=== PATIENT | male | born 1975 | race American Indian/Alaskan Native ===

== ENCOUNTER 2022-04-15 13:00 | Emergency (ER) | payer SELFPAY ==
[2022-04-15] MEDS ORDERED: NALOXONE 2 MG/2 ML INJ IV SCH (13:30)
[2022-04-15] MEDS ORDERED: NALOXONE 0.4 MG/1 ML INJ IV PRN ×2 (13:31→20:23)
[2022-04-15] MEDS ORDERED: SODIUM CHLORIDE 0.9% 1000 ML 1,000 ML IV ONE (13:31)
[2022-04-15] MEDS ORDERED: NALOXONE 2 MG/2 ML INJ ONE (13:46)
--- NOTE | 2022-04-15 13:53 | XRay Report ---
CHEST 1 VIEW 04/15/2022 12:47 PM INDICATION / CLINICAL INFORMATION: drug overdose. COMPARISON: None available. FINDINGS: SUPPORT DEVICES: None. HEART / MEDIASTINUM: No significant abnormality. LUNGS / PLEURA: No significant pulmonary or pleural abnormality. No pneumothorax. ADDITIONAL FINDINGS: No significant additional findings. IMPRESSION: 1. No acute findings. Signer Name: Oseas Jackson MD Signed: 04/15/2022 1:49 PM Workstation Name: [id number]
[2022-04-15] MEDS ORDERED: NALOXONE 0.4 MG/1 ML INJ IV ONE (14:09)
[2022-04-15 14:39] LABS: Basophils % (Auto) 0.2 % (0.0-1.8); Eosinophils # (Auto) 0.2 K/mm3 (0.0-0.4); Eosinophils % (Auto) 0.8 % (0.0-4.3); Hematocrit 46.4 % (35.5-45.6); Hemoglobin 14.8 gm/dl (11.8-15.2); Lymphocytes # (Auto) 1.2 K/mm3 (1.2-5.4); Lymphocytes % (Auto) 6.6 % (13.4-35.0); Mean Corpuscular HGB Conc 32 % (32-34); Mean Corpuscular Volume 90 fl (84-94); Monocytes # (Auto) 0.9 K/mm3 (0.0-0.8); Monocytes % (Auto) 4.9 % (0.0-7.3); Platelet Count 339 K/mm3 (140-440); Red Blood Count 5.17 M/mm3 (3.65-5.03); Red Cell Distribution Width 14.3 % (13.2-15.2)
[2022-04-15 15:04] LABS: Albumin 4.9 g/dL (3.9-5); Calcium 8.7 mg/dL (8.4-10.2)
--- NOTE | 2022-04-15 15:58 | Cat Scan Report ---
CT BRAIN: 04/15/2022 INDICATION / CLINICAL INFORMATION: ams, overdose. COMPARISON: None available. FINDINGS: BRAIN/INTRACRANIAL STRUCTURES: Unenhanced CT images of the brain were obtained. There is no evidence of acute abnormality. Ventricles and sulci are normal in size and shape for a pa tient of this age. Chronic appearing patchy areas of white matter hypoattenuation are present in the subcortical and lilia p white matter of the frontal lobes bilaterally, consistent with chronic small vessel ischemic change or injury. There is no evidence of acute ischemic injury, hemorrhage, or mass. There are no abnormal extra-axial fluid collections. EXTRACRANIAL STRUCTURES: Unremarkable. IMPRESSION: No acute abnormality. Chronic appearing frontal white matter hypoattenuation. All CT scans at this location are performed using dose reduction to ALARA by means of automated expos ure control. Signer Name: Dejon Quinteros MD Signed: 04/15/2022 3:54 PM Workstation Name: [id number]
[2022-04-15 16:34] LABS: Mucus,Urine FEW /HPF
[2022-04-15 16:47] LABS: Color,Urine Yellow (Yellow)
[2022-04-15 16:48] LABS: Bilirubin,Urine Negative (Negative); Blood,Urine Negative (Negative)
[2022-04-15 16:49] LABS: Urobilinogen,Urine < 2.0 mg/dL (<2.0)
[2022-04-15 17:40] LABS: Benzodiazepines Screen,Urine Negative; Cannabinoid Screen,Urine Negative; Methadone Screen,Urine Negative; Opiate Screen,Urine Negative
[2022-04-15 17:52] LABS: Amphetamine Screen,Urine Positive; Cocaine Screen,Urine Positive
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
[2022-04-15 18:43] VITALS: BP 140/85
--- NOTE | 2022-04-18 18:45 | Electrocardiograph Report ---
[facility] Test Date: 2022-04-15 Test Time: 14:42:55 Pat Name: FABIAN SOLORIO Department: Room: Gender: M [employer]: NURSE : 1975 Requested By: EVER SÁNCHEZ Order Number: [id number] Reading MD: Linda Bryant Measurements Intervals Fraser Rate: 86 P: 45 NM: 218 QRS: 35 QRSD: 84 T: 45 QT: 383 QTc: 458 Interpretive Statements Sinus rhythm Prolonged NM interval Left atrial enlargement No previous ECG available for comparison Electronically Signed On 04-18-2022 18:45:19 EDT by Linda Bryant
== END 2022-04-16 01:28 | disposition home or self-care (01) ==
LOC: ED 13:00
DX: F19.129 Other psychoactive substance abuse with intoxication, unspecified (principal); F14.10 Cocaine abuse, uncomplicated; F15.10 Other stimulant abuse, uncomplicated; Z79.899 Other long term (current) drug therapy
CPT/HCPCS: 36415; 70450; 71045; 80053; 80307; 81001; 82550; 83735; 85025; 93005; 96374; 96376; 99285; J2310; J7030; 80320; G0480